=== PATIENT | male | born 1975 | race Hispanic/Latino ===

== ENCOUNTER 2018-11-12 16:44 | Emergency (ER) | payer SELFPAY ==
[~2018-11-12] VITALS: Ht 165.1 cm; Wt 90.0 kg
[2018-11-12] MEDS ORDERED: MEDDOSEPAK PO (17:10)
[2018-11-12] MEDS ORDERED: BACTROBAN TOP (17:10)
[2018-11-12] MEDS ORDERED: KEFLEX500 M1 PO (17:10)
[2018-11-12 17:15] VITALS: BP 143/81
== END 2018-11-12 17:15 | disposition home or self-care (01) | DRG 607 ==
LOC: ED 16:44
DX: L30.9 Dermatitis, unspecified (principal)